=== PATIENT | male | born 1975 | race Two or more races ===

== ENCOUNTER 2019-03-28 12:18 | Emergency (ER) | payer OTHER ==
[~2019-03-28] VITALS: Ht 170.2 cm; Wt 74.8 kg
[2019-03-28] MEDS ORDERED: INDERAL LA60 MG ORAL (12:24)
[2019-03-28] MEDS ORDERED: ZOLOFT25 MG ORAL (12:24)
[2019-03-28] MEDS ORDERED: SEROQUEL50 MG ORAL (12:24)
[2019-03-28 12:25] VITALS: BP 112/72
--- NOTE | 2019-03-28 12:33 | NUR ---
ED Nurse Note: Patient walked into ED c/o "torn biceps" c/o pain right upper arm. patient reports he was doing acrobatics when he sustained injury.
[2019-03-28] MEDS ORDERED: IBUPROFEN600 MG ORAL (13:39)
[2019-03-28] MEDS ORDERED: NORCO 5-325 TA1 EACH ORAL (13:39)
[2019-03-28 13:46] VITALS: BP 112/72
--- NOTE | 2019-03-28 13:47 | NUR ---
ER DISCHARGE NOTE: Patient is cleared to be discharged per ERPA, pt is aox4, on room air, with stable vital signs. pt was given dc and prescription instructions with CD for x-ray, pt was able to verbalize understanding, pt id band removed. pt is able to ambulate with steady gait. pt took all belongings.
--- NOTE | 2019-03-28 16:08 | Emergency Room Report ---
History of Present Illness General Chief Complaint: Upper Extremity Injury Source: Patient Present Illness HPI Patient is a 44-year-old male presenting for possible right biceps injury. He states that he was performing acrobatics yesterday when he felt a sharp pain in the right arm. He denies hearing any popping sound. Pain is a 9 out of 10 dull ache and does not radiate. Worse with arm movement. He has used ibuprofen which did help. He denies previous arm injury. He denies other symptoms including numbness, tingling, fever, chills Allergies: Coded Allergies: IODINE (Verified Allergy, Severe, 03/28/19) SHELLFISH DERIVED (Verified Allergy, Unknown, 03/28/19) Patient History Past Medical History: see triage record Pertinent Family History: none Reviewed Nursing Documentation: PMH: Agreed; PSxH: Agreed Nursing Documentation-PMH Past Medical History: No History, Except For Hx Asthma: Yes Review of Systems All Other Systems: negative except mentioned in HPI Physical Exam Vital Signs Date Time Temp Pulse Resp B/P (MAP) Pulse Ox O2 Delivery O2 Flow Rate FiO2 03/28/19 12:25 98.4 71 17 112/72 (85) 97 Room Air Sp02 EP Interpretation: reviewed, normal General Appearance: no apparent distress, alert, GCS 15, non-toxic Head: normocephalic, atraumatic Musculoskeletal: normal range of motion, other - bicep deformity R, tender - R anterior deltoid and bicep Neurologic: alert, oriented x3, responsive, motor strength/tone normal, sensory intact, speech normal Psychiatric: judgement/insight normal, memory normal, mood/affect normal, no suicidal/homicidal ideation Skin: no rash Procedures Splinting Splinting : Consent: Verbal Location: R arm Pre-Made Type: sling Pre-Proc Neuro Vasc Exam: normal Post-Proc Neuro Vasc Exam: normal Patient Tolerated: Well Complications: None Medical Decision Making PA Attestation Dr. Pearson is my supervising physician. Patient management was discussed with my supervising physician Diagnostic Impression: Primary Impression: Biceps tendon rupture, proximal Qualified Codes: S46.211A - Strain of muscle, fascia and tendon of other parts of biceps, right arm, initial encounter ER Course Patient is a 44-year-old male presenting for possible right biceps injury. Ddx considered include but not limited to tendon rupture, sprain/strain, fracture, contusion PE: Vitals stable. NAD R arm bicep deformity. Abnormally large space between shoulder and bicep. TTP over the anterior deltoid/proximal bicep. No ecchymosis. SILT Full AROM intact although decreased strength with arm flexion and supination R shoulder xray shows no acute findings. R arm sling placed Patient is given a prescription for pain medication and told he needs to follow- up with orthopedics as soon as possible. Information provided with discharge paperwork. ER precautions given Other X-Ray Diagnostic Results Other X-Ray Diagnostic Results : X-Ray ordered: R shoulder # of Views/Limited Vs Complete: 3 View, Complete Indication: Pain EP Interpretation: Yes OLLIE Xray: Interpretation reviewed, by supervising MD, and agrees with findings. Interpretation: no dislocation, no soft tissue swelling, no fractures Impression: No acute disease Electronically Signed by: Rainer Yao PA-C Last Vital Signs Date Time Temp Pulse Resp B/P (MAP) Pulse Ox O2 Delivery O2 Flow Rate FiO2 03/28/19 13:46 98.4 17 112/72 97 Room Air 03/28/19 12:25 71 Status: improved Disposition: HOME, SELF-CARE Condition: Improved Scripts Hydrocodone Bit/Acetaminophen 5-325* (NORCO 5-325*) 1 Each Tablet 1 TAB ORAL Q6H PRN for For Pain, #10 TAB 0 Refills Prov: RAINER YAO P.A. 03/28/19 Ibuprofen* (MOTRIN*) 600 Mg Tablet 600 MG ORAL Q8H PRN for For Pain, #30 TAB 0 Refills Prov: RAINER YAO P.A. 03/28/19 Referrals: Liborio Monzon MD [facility] Open 24 hour /7 days a week by Appointment Only [address] [facility] [address] Patient Instructions: Biceps Tendon Disruption (Proximal) With [facility] Additional Instructions: I discussed my findings with the patient. All questions and concerns have been answered. Treatment and medication compliance have been addressed.Return to ED if pain remains or worsens, numbness or tingling occurs, new rash is noticed, fever is noticed, or if needed for any reason. Patient verbalized understanding of discharge instructions. I advised the patient that he needs to follow-up with orthopedic surgery as soon as possible for further evaluation and treatment. This will likely need surgery as discussed RAINER YAO Mar 28, 2019 16:08
--- NOTE | 2019-03-29 12:53 | Diagnostic Imaging Report ---
Indication: Right shoulder pain COMPARISON: None Findings: 3 views of the right shoulder were obtained. No acute fractures, malalignment, erosions or periostitis are identified. There is an old fracture of the distal right clavicle noted. Soft tissues are unremarkable. Impression: Negative for acute injury
== END 2019-03-28 13:46 | disposition home or self-care (01) ==
LOC: EMR 13:01
DX: S46.211A Strain of muscle, fascia and tendon of other parts of biceps, right arm, initial encounter (principal); X58.XXXA Exposure to other specified factors, initial encounter; Y92.9 Unspecified place or not applicable; Z91.041 Radiographic dye allergy status; Z91.013 Allergy to seafood
CPT/HCPCS: 99283